=== PATIENT | male | born 1965 | race Caucasian/White ===

== ENCOUNTER → 2023-03-14 14:00 | Outpatient (BNVA) | payer BC, SELFPAY | PROVIDERS: PCP Nurse Practitioner Family; Visit Provider Nurse Practitioner Family | DX: J44.1 Chronic obstructive pulmonary disease with (acute) exacerbation (principal); Z13.6 Encounter for screening for cardiovascular disorders; Z12.5 Encounter for screening for malignant neoplasm of prostate; Z00.00 Encounter for general adult medical examination without abnormal findings; Z12.11 Encounter for screening for malignant neoplasm of colon; M54.2 Cervicalgia; G89.29 Other chronic pain; J30.9 Allergic rhinitis, unspecified | CPT/HCPCS: 80053; 80061; 84443; 85025; G0103 ==